=== PATIENT | female | born 1985 | race Caucasian/White ===

== ENCOUNTER → 2020-07-17 | Outpatient (CLI) | payer OTHER ==
--- NOTE | 2020-07-18 07:41 | XR ---
EXAMINATION TYPE: XR abdomen complete w decub DATE OF EXAM: 07/17/2020 HISTORY: Pain. Technique: 4 views of the abdomen are submitted. Comparison: None. Findings: There is no convincing evidence of pneumoperitoneum. The Bowel gas pattern is nonspecific and nonobstructive. No sizable air-fluid levels are seen. No mass effects are noted. No renal calcifications are identified. Moderate fecal stasis. IMPRESSION: 1. Nonspecific nonobstructive bowel gas pattern
== END | disposition home or self-care (01) ==
LOC: RADXRMAIN 15:35
PROVIDERS: ATTEND Family Medicine
DX: R10.9 Unspecified abdominal pain (principal)
CPT/HCPCS: 74021

== ENCOUNTER → 2021-01-23 | Outpatient (CLI) | payer OTHER ==
--- NOTE | 2021-01-23 20:16 | US ---
EXAMINATION TYPE: US kidneys/renal and bladder DATE OF EXAM: 01/23/2021 COMPARISON: Abdominal ultrasound 09/13/2013 CLINICAL HISTORY: R10.9 ABD CRAMPING,R94.4 ABN KIDNEY FUNCTIONS. UTI, PELVIC PAIN EXAM MEASUREMENTS: Right Kidney: 10.2 X 5.0 X 3.9 cm Left Kidney: 10.2 X 4.6 X 5.2 cm Right Kidney: Normal size, shape, echogenicity, and cortical thickness. No hydronephrosis or shadowin g nephrolithiasis. No cystic or solid mass seen. Left Kidney: Normal size, shape, echogenicity, and cortical thickness. No hydronephrosis or shadowing nephrolithiasis. No cystic or solid mass seen. Urinary Bladder: Normal. Bilateral Jets seen: Yes IMPRESSION: Normal appearance of the bilateral kidneys and urinary bladder.
== END ==
LOC: RADUSWWP 16:21
PROVIDERS: ATTEND Family Medicine
DX: R10.9 Unspecified abdominal pain (principal); R94.4 Abnormal results of kidney function studies; R10.2 Pelvic and perineal pain
CPT/HCPCS: 76770

== ENCOUNTER → 2021-02-04 | Outpatient (CLI) | payer OTHER ==
[2021-02-04 15:39] LABS: Total Volume 24 Hour,Urine 1820
[2021-02-04 15:55] LABS: Creatinine 24 Hour,Urine 1190.3 mg/24hr (800.0-1800.0)
[2021-02-04 16:13] LABS: Creatinine Clearance Urine 73 ml/min (70-135)
== END | disposition home or self-care (01) ==
LOC: LABWHC1 11:21
PROVIDERS: ATTEND Nurse Practitioner Family
DX: R94.4 Abnormal results of kidney function studies (principal)
CPT/HCPCS: 81050; 82575

== ENCOUNTER 2021-10-07 10:36 | Day surgery (SDC) | payer OTHER ==
[2021-10-06 08:19] VITALS: BMI 31.8
[~2021-10-07 10:36] MED LIST: LACTATED RINGERS 1,000 ML IV SCH; LIDOCAINE 1% (10MG/ML) FOR IV START INTRADERMA PRN
[2021-10-07 11:08] VITALS: RESP 16; TEMP 97.3
[2021-10-07] MEDS ORDERED: LIDOCAINE 2% INJ 20 MG/ML (2 ML VIAL) ONE (12:14)
[2021-10-07] MEDS ORDERED: PROPOFOL 10 MG/ML 20 ML VIAL IV ONE (12:14)
--- NOTE | 2021-10-07 12:28 | P.PCN ---
Date of Procedure: 10/07/21 Procedure(s) Performed: BRIEF HISTORY: Patient is a 36-year-old pleasant female scheduled for an elective colonoscopy as a part of change in bowel habits and intermittent rectal bleeding for the last several months duration.. PROCEDURE PERFORMED: Colonoscopy with snare polypectomy. PREOPERATIVE DIAGNOSIS: Change in bowel habits and intermittent rectal bleeding.. IV sedation per Anesthesia. PROCEDURE: After informed consent was obtained, the patient, was brought into the endoscopy unit. IV sedation was administered by Anesthesia under continuous monitoring. Digital rectal examination was normal. Initially the Olympus CF-160 flexible video colonoscope was then inserted in the rectum, gradually advanced into the cecum without any difficulty. Careful examination was performed as the scope was gradually being withdrawn. Ileocecal valve and the appendiceal orifice were visualized and appeared normal. Prep was excellent. Mucosa of the cecum, ascending colon, transverse colon, appeared normal. In the descending colon there was a 5 limited polyp that was removed by snare polypectomy. descending colon, sigmoid colon, and rectum appeared normal. Retroflexion was performed in the rectum and small int hemorrhoids seen. The patient tolerated the procedure well. IMPRESSION: 5 mm descending colon polyp status post polypectomy Rest of the colon appeared normal Small internal hemorrhoids RECOMMENDATIONS: Findings of this examination were discussed with the patient as well as a family. She was advised to follow with the biopsy results. continue with MiraLAX 1 scoop twice daily. with the biopsy reveals adenoma she can have a repeat colonoscopy in 5 years.
[2021-10-07 13:03] VITALS: BP 108/66; PULSE 69
== END 2021-10-07 13:13 | disposition home or self-care (01) ==
LOC: ORWHC2ENDO 10:36
PROVIDERS: ATTEND Internal Medicine Gastroenterology
DX: K63.5 Polyp of colon (principal); K64.8 Other hemorrhoids; E78.5 Hyperlipidemia, unspecified; Z87.891 Personal history of nicotine dependence; Z79.899 Other long term (current) drug therapy; Z80.9 Family history of malignant neoplasm, unspecified
CPT/HCPCS: 81025; 88305; 45385; J2704; J2001

== ENCOUNTER → 2022-07-09 | Outpatient (CLI) | payer OTHER ==
--- NOTE | 2022-07-09 10:32 | US ---
EXAMINATION TYPE: US abdomen complete DATE OF EXAM: 07/09/2022 COMPARISON: Ultrasound abdomen September 13, 2013 CLINICAL INDICATION: Female, 36 years old with history of R10.84 K59.04 R14.0 R14.1; pain and bloatin g TECHNIQUE: Multiple sonographic images of the abdomen are obtained. FINDINGS: EXAM MEASUREMENTS: Liver Length: 18.3 cm Gallbladder Wall: .3 cm CBD: .4 cm Spleen: 9.5 cm Right Kidney: 9.8 x 3.8 x 3.2 cm Left Kidney: 10.9 x 4.2 x 3.5 cm CLINICAL SUPPORT MANAGER NOTES: Pancreas: Tail obscured by overlying bowel gas Liver: wnl Gallbladder: No stones seen Evidence for sonographic Payne's sign: No CBD: wnl Spleen: wnl Right Kidney: wnl Left Kidney: wnl Upper IVC: wnl Abd Aorta: wnl The liver is homogenous. The intrahepatic portion of the IVC and visualized abdominal aorta are with in normal limits. There is no evidence of shadowing mobile cholelithiasis. Common bile duct is unre markable. The visualized portions of the pancreas are homogenous. The spleen is unremarkable. Kidn eys are symmetric and free of hydronephrosis. No renal lesions are seen. No intra-abdominal ascites is evident. IMPRESSION: No acute findings are seen.
--- NOTE | 2022-07-09 10:34 | US ---
EXAMINATION TYPE: US pelvic complete DATE OF EXAM: 07/09/2022 COMPARISON: 09/13/2013 CLINICAL INDICATION: Female, 36 years old with history of R10.84 K59.04 R14.0 R14.1; pain and bloatin g TECHNIQUE: Transabdominal (TA). Transabdominal sonographic images of the pelvis were acquired. EXAM MEASUREMENTS: Uterus: 10.8 x 3.9 x 5.5 cm Endometrial Stripe: 1.2 cm Right Ovary: 2.6 x 1.9 x 1.5 cm Left Ovary: 2.8 x 1.6 x 2.5 cm 1. Uterus: Anteverted wnl 2. Endometrium: wnl 3. Right Ovary: wnl 4. Left Ovary: wnl 5. Bilateral Adnexa: wnl 6. Posterior cul-de-sac: wnl IMPRESSION: 1. No evidence for acute process. 2. Endometrium within normal limits for thickness.
== END | disposition home or self-care (01) ==
LOC: RADUSWWP 09:34
PROVIDERS: ATTEND Family Medicine
DX: K59.04 Chronic idiopathic constipation (principal); R14.0 Abdominal distension (gaseous); R14.1 Gas pain
CPT/HCPCS: 76700; 76856